=== PATIENT | male | born 1935 | race Caucasian/White ===

== ENCOUNTER 2017-02-19 07:46 | Day surgery (SDC) | payer MEDICARE, BC ==
[2017-02-19 08:27] LABS: Prothrombin Time (Patient) 10.4 Seconds (9.0-11.0)
[2017-02-19 08:29] LABS: INR 1.04 INR (0.90-1.10)
--- NOTE | 2017-02-19 08:39 | OR ---
Anesthesia Pre Procedure Eval Date of Service: 02/19/17 Pre Procedure Evaluation: Last Vital Signs Temp 36.0 C L 02/19/17 08:05 Pulse 54 L 02/19/17 08:05 Resp 16 02/19/17 08:05 BP 94/64 02/19/17 08:05 Pulse Ox 96 02/19/17 08:05 Anesthesia Pre Procedure Evaluation DATE: 02/19/2017 TIME: 8:30 AM INDICATIONS: Low back and right radicular pain PAST MEDICAL HISTORY: Long history of right hip pain with recent onset of back and right radicular pain. History of GERD: No History of smoking: No History of sleep apnea: No EXAM: Heart slow regular; lungs clear ASSESSMENT OF MEDICAL STATUS: Mr. Urbano has had a long history of right hip pain. He has been treated as if it was in the hip joint itself however his most recent injection has proved to be of no value for pain relief at this point. Shortly after the hip injection developed sudden increased pain which included a radicular pain radiating to the ankle in the anterior portion. He is here for an epidural injection. After reviewing the MRI with the patient was determined that the first step would be to do a low lumbar epidural injection. The MRI shows multilevel issues, most significantly with a spinal stenosis and 2 levels of foraminal stenosis in the lower portion of the lumbar vertebrae. He also has a level of bilateral facet arthropathy and he does have some symptoms of pain related to the arthropathy as well. When his back pain gets particularly bad it is aggravated by extension and relieved with flexion. All aspects of the potential etiology of his pain were discussed as well as the procedure of the lumbar epidural steroid injection. The procedure and risks were also discussed explained. His INR is an acceptable 1.04. PLANNED PROCEDURE: Today low lumbar epidural injection should the greatest potential of covering most of the pathologies is experiencing. Depending on results facet injections may be of value but that is to be determined. Today we plan on an L4-L5 injection. Home Medications: HOME MEDICATIONS Levothyroxine Sodium [Synthroid] 50 mcg PO DAILY 01/13/12 [Last Taken Unknown] Lisinopril/Hydrochlorothiazide [Lisinopril-Hctz 20-12.5 mg Tab] 1 each PO DAILY 01/13/12 [Last Taken 05/13/15 06:15] Polyethylene Glycol 3350 [Miralax] 17 gm PO DAILY PRN 01/13/12 [Last Taken Unknown] Warfarin Sodium [Coumadin] 5 mg PO THSA 01/13/12 [Last Taken Unknown] Atorvastatin Calcium 10 mg PO HS 08/27/14 [Last Taken Unknown] Warfarin Sodium [Coumadin] 2.5 mg PO SUMOTUWEFR 05/13/15 [Last Taken Unknown] Brimonidine Tartrate [Brimonidine 0.2% Ophthalmic Solution] 1 drop EACHEYE BID 10/13/16 [Last Taken Unknown] Cholecalciferol (Vitamin D3) [Vitamin D3] 1,000 unit PO DAILY 10/13/16 [Last Taken Unknown] Acetaminophen [Tylenol] 500 - 1,000 mg PO Q6H PRN 02/11/17 [Last Taken Unknown] Amiodarone HCl [Cordarone] 100 mg PO DAILY 02/11/17 [Last Taken Unknown] traMADol HCL [Ultram] 50 - 100 mg PO Q8H PRN 02/11/17 [Last Taken Unknown]
[2017-02-19] MEDS ORDERED: IOPAMIDOL 20 ML VIAL IJ ONE (08:55)
[2017-02-19] MEDS ORDERED: DEXAMETHASONE SOD PHOSPHATE 10 MG/ML VIAL IJ ONE (08:55)
[2017-02-19] MEDS ORDERED: LIDOCAINE HCL/PF 5 ML VIAL IJ ONE (08:55)
--- NOTE | 2017-02-19 09:07 | OR ---
Anesthesia Procedure Note - Anesthesia Procedure Note Date of Service: 02/19/17 Narrative: Vital Signs - Last Taken Temp 36.0 C L 02/19/17 08:05 Pulse 72 02/19/17 08:55 Resp 16 02/19/17 08:55 BP 152/90 02/19/17 08:55 Pulse Ox 94 02/19/17 08:55 O2 Oxygen Delivery Method Room Air 02/19/17 09:02 ANESTHESIA PROCEDURE NOTE Date of Procedure: 02/19/2017 Time of procedure: 08 50. Performed by: Calvin Newby CRNA, TUFTING CREELER, MSN Probate Judge: Patricia Varghese RN. Preprocedure diagnosis: Back and right radicular pain, spinal stenosis. Post procedure diagnosis: Same. Procedure: Epidural Steroid Injection L4 5. Indications: And radicular pain. Findings: See below. Details of the procedure: After the MRI report and films were reviewed, the patient was interviewed where risks and the procedure were explained. The patient was then brought to over #3 and was placed in the prone position. The back was prepped with DuraPrep and draped in a sterile fashion. The lumbar area was identified under fluoroscopy and the right L45 space was localized with 1% lidocaine solution. The epidural space was identified using loss of resistance technique using a #20-gauge Touhy needle. 1 mL of Isovue was injected while the C-arm was positioned in the lateral orientation. The C-arm was then readjusted to an AP view and Isovue 200 2 milliliters was injected demonstrating a spread at the affected area. Dexamethasone 10mg and lidocaine 1 % 5 mL was injected, stylette was replaced and the epidural needle removed. A Band-Aid was then applied to the injection site, patient was placed in a supine position for 5 minutes then returned to ASU with good relief of pain, from a 20/ 10 to 0/10. EBL: None. Energy: 16.1 Seconds, 0.41 mGy Fluids: N/A. Specimen: N/A. Post procedure condition: The patient tolerated the procedure well. No complications were noted. Thank you for this consultation. Calvin Newby CRNA, MSN, TUFTING CREELER
[2017-02-19 09:39] VITALS: BP 101/61
== END 2017-02-19 07:47 | disposition home or self-care (01) ==
LOC: AMB 07:46
PROVIDERS: ATTEND Orthopaedic Surgery
PROC: 3E0R33Z Introduction of Anti-inflammatory into Spinal Canal, Percutaneous Approach (ICD-10-PCS; 2017-02-19)
PROC: B01BZZZ Fluoroscopy of Spinal Cord (ICD-10-PCS; 2017-02-19)
PROC: 3E0R3BZ Introduction of Anesthetic Agent into Spinal Canal, Percutaneous Approach (ICD-10-PCS; principal; 2017-02-19 08:30)
DX: M48.061 Spinal stenosis, lumbar region without neurogenic claudication (principal); Z79.01 Long term (current) use of anticoagulants; Z68.33 Body mass index [BMI] 33.0-33.9, adult

== ENCOUNTER 2019-06-06 19:04 | Observation (INO) ==
[2019-06-06 20:08] LABS: Hematocrit 43.9 % (42.0-52.0); Hemoglobin 14.8 gm/dL (13.5-18.0); Mean Corpuscular Hgb Conc 33.7 g/dl (32-36); Mean Platelet Volume 10.2 fl (8-11.3); Neutrophil # 7.1 K/mm3 (1.3-6.0); Neutrophil % 79.2 % (42-75.0); Platelet Count 143 K/mm3 (150-450); Red Blood Count 4.77 M/mm3 (4.7-6.0); Red Cell Distribution Width 14.1 % (11.5-14.0); White Blood Count 8.9 K/mm3 (4.0-10.5)
[2019-06-06 20:25] LABS: ALT 16 U/L (19-67); AST 18 U/L (0-48); Albumin * 4.1 gm/dl (3.4-5.0); Alkaline Phosphatase * 91 U/L (50-170); Amylase * 65 U/L (25-115); Anion Gap 15.4 mmol/L (6.8-13.8); BUN/Creatinine Ratio 17.9 (9.0-21.6); Bilirubin, Total 0.8 mg/dL (0.0-1.1); Blood Urea Nitrogen 24 mg/dL (6-23); Ca. Corrected For Albumin 9.4 mg/dL (8.4-10.2); Calcium * 9.8 mg/dL (7.9-10.9); Carbon Dioxide 26.6 mmol/L (24-32.6); Chloride 105 mmol/L (97-106); Glucose * 90 mg/dL (70-110); Lipase 122 U/L (73-393); Sodium 143 mmol/L (132-142)
[2019-06-06] MEDS ORDERED: HYDROmorphone HCL 1 MG/ML DISP.SYRIN IV ONE (20:52)
[2019-06-06] MEDS ORDERED: DIATRIZOATE MEGLUMINE, SODIUM 30 ML BTL PO ONE (20:52)
[2019-06-06] MEDS ORDERED: ONDANSETRON HCL/PF 2 MG/ML VIAL IV ONE (20:52)
--- NOTE | 2019-06-06 22:00 | ERNOTE ---
Abdominal HPI - Narrative Date of Service: 06/06/19 - General Chief Complaint: Abdominal Pain Time Seen by Provider: 06/06/19 19:42 Source: patient, RN notes reviewed, past records Exam Limitations: no limitations - Immun/Allergies/Home Medications Immunizatons: IMMUNIZATION HX Immunizations Up to Date Yes History of Influenza Vaccine Yes Hx Pneumococcal Vaccination Yes Allergies/Adverse Reactions: Allergies morphine Adverse Reaction (Mild, Verified 07/13/18 10:23) hallucinations Home Medications: HOME MEDICATIONS Brimonidine Tartrate [Brimonidine 0.2% Ophthalmic Solution] 1 drp EACHEYE BID 10/13/16 [Last Taken Unknown] Amiodarone HCl [Cordarone] 100 mg PO DAILY 02/11/17 [Last Taken Unknown] warfarin 5 mg tablet 2.5 mg PO DAILY 10/09/17 [Last Taken Unknown] Omeprazole [Prilosec] 20 mg PO DAILY 10/21/17 [Last Taken Unknown] acetaminophen 325 mg tablet 650 mg PO Q6H tab 05/03/18 [Last Taken Unknown] atorvastatin 20 mg tablet 10 mg PO HS tab 05/03/18 [Last Taken Unknown] Ergocalciferol (Vitamin D2) [Vitamin D2] 50,000 unit PO Q7D 07/08/18 [Last Taken Unknown] Levothyroxine Sodium [Synthroid] 50 mcg PO DAILY 07/26/18 [Last Taken Unknown] lisinopril 20 mg-hydrochlorothiazide 12.5 mg tablet 1 tab PO DAILY #90 tab 12/20/18 [Last Taken Unknown] tamsulosin 0.4 mg capsule 0.4 mg PO DAILY #90 cap 04/19/19 [Last Taken Unknown] - History of Present Illness Narrative: Gasper is a 83 year old male who presents to the ED from home for mid abdominal pain that began earlier today. He has mild pain all the time, but has intermittent bouts of severe pain. He has a history of diverticulitis with perforation and a colon resection. He denies any nausea or vomiting. He has not had a bowel movement today and reports that this is unusual for him. He is anticoagulated on Coumadin for Afib. Date (Duration): 06/06/19 Time (Timing): 14:30 Activities at Onset: none - had just eaten Modifying Factors - (Improves): Absent: rest, movement Modifying Factors - (Worsens): Absent: rest, movement Associated Symptoms: Present: denies symptoms Prior Abdominal Problems: Present: similar symptoms Prior Treatment: Absent: recently seen Review of Systems - Review of Systems Constitutional: Absent: recent illness, fever, chills EYE: Present: no symptoms reported ENT: Present: no symptoms reported Respiratory: Absent: shortness of breath, cough Cardiology: Absent: chest pain, syncope Gastrointestinal/Abdominal: Present: See HPI. Absent: other - blood in stools Genitourinary: Present: no symptoms reported Musculoskeletal: Absent: back pain Skin: Absent: rash, lesions Neurological: Absent: headache, dizziness/light-headedness Endocrine: Present: no symptoms reported Hematologic/Lymphatic: Present: easy bruising, easy bleeding Psych: Present: no symptoms reported Medical History (Last Reviewed 06/06/19 @ 21:55 by Laurie Hinson NP) Trochanteric bursitis, right hip (Chronic) Onset Date: Unknown assisted current use of amiodarone (Chronic) Onset Date: Unknown Osteoarthritis (Chronic) Onset Date: 03/05/11 Liver disease (Chronic) Onset Date: Unknown Hypothyroidism (Chronic) Onset Date: 03/05/11 Hypertension (Chronic) Onset Date: 03/05/11 Atrial fibrillation (Chronic) Onset Date: Unknown History of atrial fibrillation nonrecurrent on amiodarone therapy. 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 Soledad's reversal 04/22/2018. Diarrhea Onset Date: Unknown Hospital admission Onset Date: 04/22/18 Admitted to [facility] on 04/22/2018; Soledad's reversal. Discharged home on 04/26/2018. Personal history of colonic polyps Onset Date: Unknown Surgical History: Surgical History (Last Reviewed 06/06/19 @ 21:55 by Laurie Hinson NP) History of Soledad's reversal Onset Date: 04/22/18 Dr. Edwin Valentino, [facility]. History of colon resection Onset Date: 10/26/17 History of colonoscopy with polypectomy Onset Date: 02/17/18 Dr. Edwin Valentino [facility]. History of colostomy Onset Date: 10/26/17 History of exploratory laparotomy Onset Date: 12/22/08 tinguely History of ileostomy Onset Date: 12/22/08 Dr. Rip Ahuja, [facility].--diverting 03/19/09-- Tinguely take down of ileostomy with resection and reanastomosis of the ileum History of right hip replacement Onset Date: 05/13/15 right total hip arthroplasty per Dr Loera History of total right knee replacement Onset Date: 2003 Normal colonoscopy Onset Date: 03/18/10 Normal-Tinguely S/P TURP Onset Date: 06/1999 sigmoid colon resection Onset Date: 12/22/08 tinguely --partial Family History: Family History (Last Reviewed 06/06/19 @ 21:55 by Laurie Hinson NP) Father , at 84 d/t [place] Cancer colon, prostate Myocardial infarction Mother , 98 Dementia Brother Cancer kidney Esophageal neoplasm benign Social History: (Last Reviewed 06/06/19 @ 21:55 by Laurie Hinson NP) Social History: Marital status: household members: spouse number of children: 2 current occupational status: retired Highest education level completed: high school graduate Service: Yes branch: [employer] Tobacco: Smoking Status: Never smoker Tobacco: How many years used: 40 Alcohol: alcohol intake: current Alcohol type: beer Substance Use: substance use type: does not use Dietary Habits: caffeine: Yes Physical Exam - Physical Exam General Appearance: Present: wd/wn, alert, other - Intermittent episodes of clutching abdomen and appearing very uncomfortable Head Exam: Present: normal inspection Eye Exam: Normal inspection: bilateral Neck: Present: normal inspection, nontender, supple Respiratory: Present: no respiratory distress, normal breath sounds, no acce ssory muscle use, lungs clear Cardiovascular/Chest: Present: normal peripheral pulses, bradycardia, irregularly irregular Gastrointestinal/Abdominal: Present: normal bowel sounds, nondistended, soft, tenderness - Mid/upper abdomen Neurological Exam: Present: alert, oriented, normal mood/affect, no motor/sensory deficits Skin Exam: Present: normal color, warm/dry Progress - Results and Orders Patient's Lab Results:: I have reviewed the patient's lab results. - Vital Signs Patient's Vital Signs:: I have reviewed the patient's vital signs. Vital Signs: Vital Signs 06/06/19 19:10 06/06/19 21:06 06/06/19 21:20 Temperature 37.3 C Pulse Rate 61 43 L 44 L Respiratory Rate 16 16 14 Blood Pressure 138/72 211/82 H O2 Sat by Pulse Oximetry 95 98 06/06/19 21:24 06/06/19 21:30 Temperature Pulse Rate 39 L 43 L Respiratory Rate 16 14 Blood Pressure 211/82 H 208/78 H O2 Sat by Pulse Oximetry 99 98 - EKG EKG #1 EKG: atrial fibrillation - with SVR EKG read: Reviewed by me - X-Ray X-Ray #1 X-Ray: abdomen Interpretation: Interp. by me X-ray Comments: nonspecific bowel gas pattern - Progress/Reassessment Chief Complaint: Abdominal Pain Progress:: Improved - Transfer of Care Physician Sign Out: Laurie Hinson Receiving Physician: Jed Sandoval Expected Disposition: Discharge Departure Clinical Impression: Abdominal pain Qualifiers: Abdominal location: upper abdomen, unspecified Qualified Code(s): R10.10 - Upper abdominal pain, unspecified - Departure Disposition: Home self-care Condition: Stable Referrals: Amado Nicholson DO [Primary Care Provider] -
[2019-06-07 01:30] LABS: Prothrombin Time (Patient) 24.1 Seconds (9.1-10.7)
[2019-06-07 01:33] LABS: INR 2.52 INR (0.92-1.08)
[2019-06-07] MEDS ORDERED: PANTOPRAZOLE SODIUM 40 MG/100 ML PIGGYBACK IV ONE (01:35)
--- NOTE | 2019-06-07 01:41 | HP ---
Chief Complaint - Chief Complaint Date of Service: 06/07/19 Time of Service: 01:00 Chief Complaint: abdominal pain History of Present Illness: Started having mid abdominal pain at about 2:30-3 PM. Waxed and waned. Last BM yesterday, only a little gas today. No N/V. CT scan shows dilated proximal small bowel with a transition zone. Large amount of stool in the colon. Previous colon resections for diverticulitis. Had diverting ileostomy with last procedure (done at [facility]) reversed about a year ago. Glaucoma and urinary outlet obstruction. Hypothyroidism. Hypertension--recent poor control. A-fib on coumadin. Medical History (Last Reviewed 06/07/19 @ 01:28 by Eric Edwards MD) Trochanteric bursitis, right hip (Chronic) Onset Date: Unknown [facility]FP current use of amiodarone (Chronic) Onset Date: Unknown Osteoarthritis (Chronic) Onset Date: 03/05/11 Liver disease (Chronic) Onset Date: Unknown Hypothyroidism (Chronic) Onset Date: 03/05/11 Hypertension (Chronic) Onset Date: 03/05/11 Atrial fibrillation (Chronic) Onset Date: Unknown History of atrial fibrillation nonrecurrent on amiodarone therapy. 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 Soledad's reversal 04/22/2018. Diarrhea Onset Date: Unknown Hospital admission Onset Date: 04/22/18 Admitted to [facility] on 04/22/2018; Soledad's reversal. Discharged home on 04/26. Personal history of colonic polyps Onset Date: Unknown Surgical History: Surgical History (Last Reviewed 06/07/19 @ 01:28 by Eric Edwards MD) History of Soledad's reversal Onset Date: 04/22/18 Dr. Edwin Valentino, [facility]. History of colon resection Onset Date: 10/26/17 History of colonoscopy with polypectomy Onset Date: 02/17/18 Dr. Edwin Valentino, [facility]. History of colostomy Onset Date: 10/26/17 History of exploratory laparotomy Onset Date: 12/22/08 tinguely History of ileostomy Onset Date: 12/22/08 Dr. Rip Ahuja, [facility].--diverting 03/19/09-- Tinguely take down of ileostomy with resection and reanastomosis of the ileum History of right hip replacement Onset Date: 05/13/15 right total hip arthroplasty per Dr Loera History of total right knee replacement Onset Date: 2003 Normal colonoscopy Onset Date: 03/18/10 Normal-Tinguely S/P TURP Onset Date: 06/1999 sigmoid colon resection Onset Date: 12/22/08 tinguparam --partial Family History: Family History (Last Reviewed 06/07/19 @ 01:28 by Erci Edwards MD) Father , at 84 d/t [place] Cancer colon, prostate Myocardial infarction Mother , 98 Dementia Brother Cancer kidney Esophageal neoplasm benign Social History: (Last Reviewed 06/07/19 @ 01:28 by Eric Edwards MD) Social History: Marital status: household members: spouse number of children: 2 current occupational status: retired Highest education level completed: high school graduate Service: Yes branch: [employer] Tobacco: Smoking Status: Never smoker Tobacco: How many years used: 40 Alcohol: alcohol intake: current Alcohol type: beer Substance Use: substance use type: does not use Dietary Habits: caffeine: Yes Review Of Systems (GEN) - Review of Systems Generalized/Overall Review: Absent: Chills, Fever, Weight loss EENTM: Present: Other - needs eye drops hearing aid. Absent: No Symptoms Reported Respiratory: Absent: Cough, Shortness of Breath Cardiac: Present: Other - occasional sharp pleuritic pain, no angina he is unaware of irregular heartbeat BP has been very erratic over last month Abdominal: Present: Abdominal Pain. Absent: Nausea, Vomiting, Diarrhea, Bright blood from rectum Genitourinary: Present: Other - slow stream. Absent: Hematuria, Dysuria Musculoskeletal: Present: Other - right hip pain is better. Absent: No Symptoms Reported Neurological: Present: No Symptoms Reported. Absent: Headache Skin: Present: No Symptoms Reported Endocrine: Present: No Symptoms Reported Misc: All systems neg except as marked Immunizations: IMMUNIZATION HX Immunizations Up to Date Yes History of Influenza Vaccine Yes Hx Pneumococcal Vaccination Yes Allergies/Adverse Reactions: Allergies Allergy/AdvReac Type Severity Reaction Status Date / Time morphine AdvReac Mild hallucinati Verified 07/13/18 10:23 ons Home Medications: HOME MEDICATIONS Brimonidine Tartrate [Brimonidine 0.2% Ophthalmic Solution] 1 drp EACHEYE BID 10/13/16 [Last Taken Unknown] Amiodarone HCl [Cordarone] 100 mg PO DAILY 02/11/17 [Last Taken Unknown] warfarin 5 mg tablet 2.5 mg PO DAILY 10/09/17 [Last Taken Unknown] Omeprazole [Prilosec] 20 mg PO DAILY 10/21/17 [Last Taken Unknown] acetaminophen 325 mg tablet 650 mg PO Q6H tab 05/03/18 [Last Taken Unknown] atorvastatin 20 mg tablet 10 mg PO HS tab 05/03/18 [Last Taken Unknown] Ergocalciferol (Vitamin D2) [Vitamin D2] 50,000 unit PO Q7D 07/08/18 [Last Taken Unknown] Levothyroxine Sodium [Synthroid] 50 mcg PO DAILY 07/26/18 [Last Taken Unknown] lisinopril 20 mg-hydrochlorothiazide 12.5 mg tablet 1 tab PO DAILY #90 tab 12/20/18 [Last Taken Unknown] tamsulosin 0.4 mg capsule 0.4 mg PO DAILY #90 cap 04/19/19 [Last Taken Unknown] Exam - Exam Vital Signs: Vital Signs - Last Taken Temp 36.3 C 06/06/19 22:27 Pulse 70 06/07/19 00:35 Resp 16 06/07/19 00:35 BP 202/90 H 06/07/19 00:35 Pulse Ox 98 06/07/19 00:35 Constitutional: Present: Alert, Oriented x3, Cooperative, Well developed, Well nourished, Mild distress ENT Exam: Present: normal ENT inspection, other - wearing mask hearing aid Eye Exam: bilateral eye: normal inspection - slight injection Neck: Present: non-tender, full range of motion, normal inspection Back Exam: Present: normal inspection Breasts: Present: Exam deferred Respiratory: Present: lungs clear, normal breath sounds, no respiratory distress Cardiovascular/Chest: Present: irregularly irregular Abdomen: Present: soft, nontender, nondistended. Absent: rebound tenderness /Rectal: Present: Exam deferred Extremity: Present: normal range of motion, normal inspection, no pedal edema, no calf tenderness, normal capillary refill Skin Exam: Present: warm/dry Neurologic: Present: manager of change II-XII nml as tested, normal cerebellar test, no motor/sensory deficits, alert, normal mood/affect, oriented x 3 Appearance: Present: appropriate appearance, appropriate insight, neat Eye contact: Present: cooperative, good eye contact, normal speech Thoughts: Present: normal thought pattern Diagnostic Studies: Abnormal Lab Results 06/06/19 06/06/19 Range/Units 19:53 19:53 RDW 14.1 H (11.5-14.0) % Plt Count 143 L (150-450) K/mm3 Immature Gran # (Auto) 0.04 H (0.000-0.0310) K/mm3 Neutrophils % 79.2 H (42-75.0) % Lymphocytes % 13.1 L (20-51) % Neutrophils # 7.1 H (1.3-6.0) K/mm3 Lymphocytes # 1.17 L (1.5-3.5) k/mm3 Sodium 143 H (132-142) mmol/L Plasma Sodium 143 H (130-142) mmol/L Anion Gap 15.4 H (6.8-13.8) mmol/L BUN 24 H (6-23) mg/dL Est GFR (Non-Af Amer) 54 L (60-130) mL/min ALT 16 L (19-67) U/L Laboratory Results WBC 8.9 K/mm3 (4.0-10.5) 06/06/19 19:53 RBC 4.77 M/mm3 (4.7-6.0) 06/06/19 19:53 Hgb 14.8 gm/dL (13.5-18.0) 06/06/19 19:53 Hct 43.9 % (42.0-52.0) 06/06/19 19:53 MCV 92.0 fl (78-100) 06/06/19 19:53 MCH 31.0 pg (27-31) 06/06/19 19:53 MCHC 33.7 g/dl (32-36) 06/06/19 19:53 RDW 14.1 % (11.5-14.0) H 06/06/19 19:53 Plt Count 143 K/mm3 (150-450) L 06/06/19 19:53 MPV 10.2 fl (8-11.3) 06/06/19 19:53 Immature Gran % (Auto) 0.40 % (0.001-0.429) 06/06/19 19:53 Immature Gran # (Auto) 0.04 K/mm3 (0.000-0.0310) H 06/06/19 19:53 Neutrophils % 79.2 % (42-75.0) H 06/06/19 19:53 Lymphocytes % 13.1 % (20-51) L 06/06/19 19:53 Monocytes % 5.3 % (0.0-9) 06/06/19 19:53 Eosinophils % 1.6 % (0.0-3.0) 06/06/19 19:53 Basophils % 0.4 % (0.0-1.0) 06/06/19 19:53 Nucleated RBC % 0.0 k/mm3 (0-1) 06/06/19 19:53 Neutrophils # 7.1 K/mm3 (1.3-6.0) H 06/06/19 19:53 Lymphocytes # 1.17 k/mm3 (1.5-3.5) L 06/06/19 19:53 Monocytes # 0.5 k/mm3 (0.0-1.0) 06/06/19 19:53 Eosinophils # 0.1 k/mm3 (0.0-0.7) 06/06/19 19:53 Absolute Basophils 0.0 k/mm3 (0.0-0.1) 06/06/19 19:53 Sodium 143 mmol/L (132-142) H 06/06/19 19:53 Plasma Sodium 143 mmol/L (130-142) H 06/06/19 19:53 Potassium 4.0 mmol/L (3.4-4.6) 06/06/19 19:53 Chloride 105 mmol/L (97-106) 06/06/19 19:53 Carbon Dioxide 26.6 mmol/L (24-32.6) 06/06/19 19:53 Anion Gap 15.4 mmol/L (6.8-13.8) H 06/06/19 19:53 BUN 24 mg/dL (6-23) H 06/06/19 19:53 Creatinine 1.34 mg/dL (0.4-1.4) 06/06/19 19:53 Est GFR (Non-Af Amer) 54 mL/min (60-130) L 06/06/19 19:53 BUN/Creatinine Ratio 17.9 (9.0-21.6) 06/06/19 19:53 Random Glucose 90 mg/dL (70-110) 06/06/19 19:53 Calcium 9.8 mg/dL (7.9-10.9) 06/06/19 19:53 Calcium Adj for Albumin 9.4 mg/dL (8.4-10.2) 06/06/19 19:53 Total Bilirubin 0.8 mg/dL (0.0-1.1) 06/06/19 19:53 AST 18 U/L (0-48) 06/06/19 19:53 ALT 16 U/L (19-67) L 06/06/19 19:53 Alkaline Phosphatase 91 U/L (50-170) 06/06/19 19:53 C-Reactive Prot, Quant Less than 0.2 mg/dL (0.0-0.9) 06/06/19 19:53 Total Protein 7.0 gm/dL (6.2-8.2) 06/06/19 19:53 Albumin 4.1 gm/dl (3.4-5.0) 06/06/19 19:53 Amylase 65 U/L (25-115) 06/06/19 19:53 Lipase 122 U/L (73-393) 06/06/19 19:53 CT shows dilated proximal small bowel with transition. Large amount of stool in colon Assessment/Plan - Assessment/Plan (1) Small bowel obstruction Assessment: Most likely from adhesions, and may not be complete. Would trial NG suction with re-assessment as operation would be very technically difficult and he has multiple co-morbidities. Problem: Acute (2) [facility]FP current use of amiodarone Assessment: continue Problem: Chronic (3) Hypothyroidism Assessment: continue current med Problem: Chronic (4) Hypertension Assessment: His BP control is currently not optima, will consult Dr Nicholson in AM Problem: Chronic (5) Atrial fibrillation Assessment: Will check INR. Will hold Coumadin and use SQ Heparin Problem: Chronic (6) Hyperlipidemia Assessment: continue med Problem: Chronic (7) Urinary retention Assessment: continue med Problem: Chronic (8) GERD (gastroesophageal reflux disease) Assessment: IV protonix Problem: Chronic (9) Glaucoma Assessment: continue current drops Problem: Chronic
[2019-06-07] MEDS: NORMAL SALINE 1,000 ML IV PRN ×2 (03:15→16:22)
[2019-06-07] MEDS: HEPARIN SODIUM,PORCINE 5,000 UNITS/ML VIAL SC SCH ×3 (03:25→18:44)
[2019-06-07] MEDS: LEVOTHYROXINE SODIUM 50 MCG TABLET PO SCH (07:06)
[2019-06-07] MEDS ORDERED: hydrALAZINE HCL 20 MG/ML VIAL IV ONE (08:39)
[2019-06-07] MEDS ORDERED: NON-FORMULARY 1 DOSE DOSE (Lisinopril/Hydrochlorothiazide [Lisinopril-Hctz 20-12.5 Mg Tab] PO SCH (09:00)
[2019-06-07] MEDS ORDERED: LISINOPRIL 20 MG TABLET PO SCH (09:00)
[2019-06-07] MEDS ORDERED: TAMSULOSIN HCL 0.4 MG CAP.SR.24H PO SCH ×2 (09:00→18:00)
[2019-06-07] MEDS: AMIODARONE HCL 200 MG TABLET PO SCH (09:13)
[2019-06-07] MEDS: BRIMONIDINE TARTRATE 50 DROP BTL EACHEYE SCH ×2 (09:13→21:02)
[2019-06-07] MEDS: HYDROCHLOROTHIAZIDE 12.5 MG CAPSULE PO SCH (09:14)
--- NOTE | 2019-06-07 10:37 | PN ---
Dictated Progress Note - Date and Time Seen: Date: 06/07/19 Time: 10:35 - Second visit - Progress Note Narrative: Vital Signs - Last Taken Temp 36.6 C 06/07/19 05:00 Pulse 45 L 06/07/19 09:14 Resp 16 06/07/19 05:00 BP 188/72 H 06/07/19 09:14 Pulse Ox 100 06/07/19 05:00 Abnormal/Pending Laboratory Last 24 HRS 06/06/19 06/06/19 06/06/19 20:00 19:53 19:53 RDW 14.1 H Plt Count 143 L Immature Gran # (Auto) 0.04 H Neutrophils % 79.2 H Lymphocytes % 13.1 L Neutrophils # 7.1 H Lymphocytes # 1.17 L PT 24.1 H INR (Anticoag Therapy) 2.52 H Sodium 143 H Plasma Sodium 143 H Anion Gap 15.4 H BUN 24 H Est GFR (Non-Af Amer) 54 L ALT 16 L He states his abdomen feels better. No pain. He has passed some gas. Repeat x-ray this morning shows CT contrast is moved into the colon and the small bowel is no longer dilated. He had initial high NG output however tolerated clamping of the tube for medication with minimal post clamp residual. Impression: Clinically improved. Plan: Will administer a dose of MiraLAX and some Dulcolax, clamp the tube. If he has bowel activity may start liquids this evening.
[2019-06-07] MEDS ORDERED: BISACODYL 5 MG TABLET.DR PO ONE ×2 (10:38→16:45)
[2019-06-07] MEDS: POLYETHYLENE GLYCOL 3350 17 GM PACKET PO SCH (10:53)
[2019-06-07] MEDS ORDERED: TETRACAINE/BENZOCAINE/BUTAMBEN 20 SPRAY BTL TP PRN (16:07)
[2019-06-07] MEDS ORDERED: PHENOL 180 SPRAY BTL MM PRN (16:35)
--- NOTE | 2019-06-07 16:47 | PN ---
Subjective - Date and Time Seen Date: 06/07/19 Time: 16:41 Objective Objective Narrative: His only current complaint is a sore throat. Chloraseptic has helped. Minimal NG output, and he tolerated p.o. meds. He denies abdominal pain. He states he is passing more gas. - Review of Systems Generalized/Overall Review: Denies: Chills, Fever EENTM: Reports: Other - Throat sore from the NG tube Respiratory: Reports: No Symptoms Reported. Denies: Cough, Shortness of Breath Cardiac: Reports: No Symptoms Reported. Denies: Chest Pain Abdominal: Denies: Nausea, Vomiting, Abdominal Pain Genitourinary Symptoms: Reports: No Symptoms Reported, Other - Has voided "the normal amount" Musculoskeletal Complaints: Reports: No Symptoms Reported Neurological: Reports: No Symptoms Reported Skin: Reports: No Symptoms Reported - Vitals Vitals: Last Vital Signs Temp 37.0 C 06/07/19 14:59 Pulse 52 L 06/07/19 14:59 Resp 20 06/07/19 14:59 BP 154/66 H 06/07/19 14:59 Pulse Ox 96 06/07/19 14:59 - Abnormal Lab Findings Abnormal Lab Findings: Abnormal Lab Results 06/06/19 06/06/19 06/06/19 Range/Units 19:53 19:53 20:00 RDW 14.1 H (11.5-14.0) % Plt Count 143 L (150-450) K/mm3 Immature Gran # (Auto) 0.04 H (0.000-0.0310) K/mm3 Neutrophils % 79.2 H (42-75.0) % Lymphocytes % 13.1 L (20-51) % Neutrophils # 7.1 H (1.3-6.0) K/mm3 Lymphocytes # 1.17 L (1.5-3.5) k/mm3 PT 24.1 H (9.1-10.7) Seconds INR (Anticoag Therapy) 2.52 H (0.92-1.08) INR Sodium 143 H (132-142) mmol/L Plasma Sodium 143 H (130-142) mmol/L Anion Gap 15.4 H (6.8-13.8) mmol/L BUN 24 H (6-23) mg/dL Est GFR (Non-Af Amer) 54 L (60-130) mL/min ALT 16 L (19-67) U/L - Exam Constitutional: Present: Alert, Oriented x3, Cooperative, Well developed, Well nourished, No distress ENT Exam: Present: normal ENT inspection Neck: Present: full range of motion, normal inspection Respiratory: Present: no respiratory distress Cardiovascular/Chest: Present: bradycardia Abdomen: Present: soft, nontender /Rectal: Present: Exam deferred Extremity: Present: normal range of motion, no pedal edema, no calf tenderness Skin Exam: Present: normal color, warm/dry 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 He is passing gas. He has no more abdominal discomfort Will clamp the NG tube and start clear liquids. 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 Await Dr. Nicholson suggestions (3) Hypothyroidism Problem: Chronic Narrative: Stable continue usual medication (4) Hypertension Problem: Chronic Narrative: Blood pressure has been better today. Await Dr. Nicholson's recommendation (5) Atrial fibrillation Problem: Chronic Narrative: Rate has been low today. Await Dr. Nicholson's recommendation. Continue current medication (6) Hyperlipidemia Problem: Chronic Narrative: Continue current medication (7) Urinary retention Problem: Chronic (8) GERD (gastroesophageal reflux disease) Problem: Chronic Narrative: Continue IV Protonix (9) Glaucoma Problem: Chronic Narrative: Continue usual eyedrops
[2019-06-07] MEDS ORDERED: SIMVASTATIN 20 MG TABLET PO SCH (21:00)
--- NOTE | 2019-06-07 23:10 | CONS ---
[facility] - General Date of Service: 06/07/19 Source: patient, other - Consulting physician (Dr. Edwards) - History of Present Illness Initial Comments: Patient is admitted for small bowel obstruction. He reported blood pressures have been elevated off and on. In the hospital blood pressures have been consistently greater than 180. He has had headache. He reports abdomen is feeling better and at this time he does not have any abdominal pain. He denies changes with blood pressure medications and does not think he has been overusing salt. Allergies/Adverse Reactions: Allergies morphine Adverse Reaction (Mild, Verified 07/13/18 10:23) hallucinations Home Medications: Home Medications Medication Instructions Recorded Last Taken Brimonidine Tartrate [Brimonidine 1 drp EACHEYE BID 10/13/16 06/06/19 0.2% Ophthalmic Solution] Amiodarone HCl [Cordarone] 100 mg PO DAILY 02/11/17 06/06/19 warfarin 5 mg tablet 2.5 mg PO DAILY 10/09/17 06/05/19 Omeprazole [Prilosec] 20 mg PO DAILY 10/21/17 06/06/19 acetaminophen 325 mg tablet 650 mg PO Q6H tab 05/03/18 Unknown atorvastatin 20 mg tablet 10 mg PO HS tab 05/03/18 06/06/19 Ergocalciferol (Vitamin D2) 50,000 unit PO Q7D 07/08/18 06/06/19 [Vitamin D2] Levothyroxine Sodium [Synthroid] 50 mcg PO DAILY 07/26/18 06/06/19 lisinopril 20 1 tab PO DAILY #90 tab 12/20/18 06/06/19 mg-hydrochlorothiazide 12.5 mg tablet tamsulosin 0.4 mg capsule 0.4 mg PO DAILY #90 cap 04/19/19 06/05/19 Procedures ARTERIAL BLD GAS MEASURE (01/04/09) CYSTOSCOPY NEC (04/26/09) Closed [percutaneous] [needle] biopsy of prostate (06/07/07) Colonoscopy (03/18/10) Fluoroscopy of Spinal Cord (02/19/17) ILEOSTOMY NOS (12/22/08) Introduction of Anesthetic Agent into Spinal Canal, Percutaneous Approach (02/19/17) Introduction of Anti-inflammatory into Joints, Percutaneous Approach (05/13/15) Introduction of Anti-inflammatory into Spinal Canal, Percutaneous Approach (02/19/17) Introduction of Local Anesthetic into Joints, Percutaneous Approach (05/13/15) OPEN AND OTHER SIGMOIDECTOMY (12/22/08) OTH TRANSURETHRAL PROSTATECTOMY (05/15/09) Replacement of Right Hip Joint with Synthetic Substitute, Uncemented, Open Approach (05/13/15) SM BOWEL STOMA CLOSURE (03/19/09) VENOUS CATHETERIZATION NEC (01/04/09) Medications - Medications Current Medications: Current Medications Amiodarone HCl (Cordarone) 100 mg PO DAILY JASVIR Stop: 07/07/19 09:01 Last Admin: 06/07/19 09:13 Dose: 100 mg Documented by: Brimonidine Tartrate (Brimonidine 0.2% Ophthalmic Solution) 1 drop EACHEYE BID JASVIR Stop: 07/07/19 09:01 Last Admin: 06/07/19 21:02 Dose: 1 drop Documented by: Heparin Sodium (Porcine) (Heparin Sodium) 5,000 units SC Q8H JSAVIR Stop: 07/07/19 02:01 Last Admin: 06/07/19 18:44 Dose: 5,000 units Documented by: Hydrochlorothiazide (Microzide) 12.5 mg PO DAILY JASVIR Stop: 07/07/19 09:01 Last Admin: 06/07/19 09:14 Dose: 12.5 mg Documented by: Sodium Chloride (Sodium Chloride 0.9%) 1,000 mls @ 100 mls/hr IV .Q10H PRN PRN Reason: HYDRATION Stop: 07/07/19 01:20 Last Admin: 06/07/19 16:22 Dose: 100 mls/hr Documented by: Levothyroxine Sodium (Synthroid) 50 mcg PO DAILY@0700 JASVIR Stop: 07/07/19 07:01 Last Admin: 06/07/19 07:06 Dose: Not Given Documented by: Lisinopril (Zestril) 20 mg PO DAILY JASVIR Stop: 07/07/19 09:01 Last Admin: 06/07/19 09:14 Dose: 20 mg Documented by: Polyethylene Glycol (Miralax) 17 gm PO DAILY JASVIR Stop: 07/07/19 10:46 Last Admin: 06/07/19 10:53 Dose: 17 gm Documented by: Simvastatin (Zocor) 20 mg PO HS JASVIR Stop: 05/08/20 21:01 Last Admin: 06/07/19 21:02 Dose: 20 mg Documented by: Tamsulosin HCl (Flomax) 0.4 mg PO DAILY@1800 JASVIR Stop: 07/07/19 18:01 Last Admin: 06/07/19 18:43 Dose: 0.4 mg Documented by: Review of Systems - Review of Systems Generalized/Overall Review: Absent: Weakness, Chills, Fever EENTM: Absent: Eye Pain, Blurred Vision Respiratory: Absent: Cough, Shortness of Breath Cardiac: Absent: Chest Pain, Edema, Palpitations Abdominal: Absent: Nausea, Vomiting, Abdominal Pain Genitourinary: Present: No Symptoms Reported Musculoskeletal: Present: Joint Pain, Back Pain Neurological: Present: Headache. Absent: Weakness Endocrine: Absent: Intolerance to Cold, Intolerance to Heat Physical Examination - Exam Vital Signs: Vital Signs - Last Taken Temp 37.4 C 06/07/19 19:35 Pulse 52 L 06/07/19 19:35 Resp 18 06/07/19 19:35 BP 176/72 H 06/07/19 20:59 Pulse Ox 95 06/07/19 19:35 O2 Oxygen Delivery Method Room Air Constitutional: Present: Alert, Oriented x3, Cooperative ENT Exam: Present: hearing grossly normal Eye Exam: bilateral eye: normal inspection Respiratory: Present: lungs clear, normal breath sounds Cardiovascular/Chest: Present: regular rate, rhythm, no murmur Peripheral Pulses: radial (R): 2+, radial (L): 2+ Abdomen: Present: Normal bowel sounds, soft, nontender, nondistended, no rebound tenderness Skin Exam: Present: normal color, warm/dry, no cyanosis, cool/dry Neurologic: Present: alert, normal mood/affect, oriented x 3 Appearance: Present: appropriate appearance, appropriate insight Eye contact: Present: cooperative, good eye contact, normal speech - Results and Findings: Lab/Microbiology results last 24 hrs: Abnormal/Pending Laboratory Last 24 HRS 06/06/19 20:00 PT 24.1 H INR (Anticoag Therapy) 2.52 H - Assessments/Findings (1) Accelerated essential hypertension Diagnosis(s): He has had a mild headache but no altered mentation, so no evidence of hypertensive emergency. He does consistently have blood pressures above 180 so I will give him a low dose IV hydralazine to quickly lower the blood pressure a little. Will monitor blood pressure for further doses of hydralazine. Will plan to increase lisinopril if blood pressure continues to be elevated. His blood pressure had been controlled in the outpatient setting. Either dietary noncompliance or pain related to small bowel obstruction has it elevated recently. Thank you for consultation, will following along for blood pressure management. Problem: Acute (2) Small bowel obstruction Diagnosis(s): Surgically managed by Dr. Edwards. Problem: Acute
[2019-06-08] MEDS: NORMAL SALINE 1,000 ML IV PRN (02:19)
[2019-06-08] MEDS: HEPARIN SODIUM,PORCINE 5,000 UNITS/ML VIAL SC SCH ×2 (02:33→12:39)
[2019-06-08 06:43] LABS: INR 3.55 INR (0.92-1.08); Prothrombin Time (Patient) 33.5 Seconds (9.1-10.7)
[2019-06-08] MEDS: BRIMONIDINE TARTRATE 50 DROP BTL EACHEYE SCH (08:10)
[2019-06-08] MEDS: HYDROCHLOROTHIAZIDE 12.5 MG CAPSULE PO SCH (08:10)
[2019-06-08] MEDS: LEVOTHYROXINE SODIUM 50 MCG TABLET PO SCH (08:10)
[2019-06-08] MEDS: AMIODARONE HCL 200 MG TABLET PO SCH (08:10)
[2019-06-08] MEDS: POLYETHYLENE GLYCOL 3350 17 GM PACKET PO SCH (08:15)
[2019-06-08] MEDS ORDERED: LISINOPRIL 40 MG TABLET PO SCH (09:00)
--- NOTE | 2019-06-08 14:02 | DS ---
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 An NG tube was placed and he was given IV fluids. His home medications were continued. A consultation was obtained from Dr. Nicholson regarding hypertensive management. His lisinopril was increased to 40 mg p.o. daily to good effect. Repeat flat and upright abdominal films demonstrated passage of the CT contrast through into the colon and resolution of small bowel dilation. The patient's abdominal pain resolved and he began to pass flatus. He was given additional MiraLAX and Dulcolax which resulted in a bowel movement. He tolerated a trial clamping of the NG tube with clear liquid diet. His diet was advanced to regular and the tube removed. He tolerated p.o. intake well and had additional bowel movements. He will be discharged home with activity as tolerated, regular diet, and resumption of his home medications. His lisinopril will be increased to 40 mg p.o. daily. He will be given a prescription for lisinopril 20 mg to add to his current antihypertensive medicine. He has numbers to call for questions or concerns. He is to continue a blood pressure log at home and call to arrange a follow-up appointment with Dr. Nicholson. Procedures Performed: none Results and Findings: Lab Pending Results 06/06/19 19:53: WBC 8.9, RBC 4.77, Hgb 14.8, Hct 43.9, MCV 92.0, MCH 31.0, MCHC 33.7, RDW 14.1 H, Plt Count 143 L, MPV 10.2, Immature Gran % (Auto) 0.40, Immature Gran # (Auto) 0.04 H, Neutrophils % 79.2 H, Lymphocytes % 13.1 L, Monocytes % 5.3, Eosinophils % 1.6, Basophils % 0.4, Nucleated RBC % 0.0, Neutrophils # 7.1 H, Lymphocytes # 1.17 L, Monocytes # 0.5, Eosinophils # 0.1, Absolute Basophils 0.0 06/06/19 19:53: Sodium 143 H, Plasma Sodium 143 H, Potassium 4.0, Chloride 105, Carbon Dioxide 26.6, Anion Gap 15.4 H, BUN 24 H, Creatinine 1.34, Est GFR (Non- Af Amer) 54 L, BUN/Creatinine Ratio 17.9, Random Glucose 90, Calcium 9.8, Calcium Adj for Albumin 9.4, Total Bilirubin 0.8, AST 18, ALT 16 L, Alkaline Phosphatase 91, C-Reactive Prot, Quant Less than 0.2, Total Protein 7.0, Albumin 4.1, Amylase 65, Lipase 122 06/06/19 20:00: PT 24.1 H, INR (Anticoag Therapy) 2.52 H 06/08/19 06:20: PT 33.5 H, INR (Anticoag Therapy) 3.55 H Discharge Location: Home Disposition: Home self-care Condition: Good Discharge Activity: Activity as tolerated Discharge Diet: General/regular food Referrals: Amado Nicholson DO [Primary Care Provider] - Consultation Done:: Dr. Nicholson Prescriptions (Any new or edited meds): Lisinopril [Zestril] 20 mg PO DAILY #20 tab Transmission Status: Pending to [facility] Complete Home Medications List: Complete Home Medication List: Brimonidine Tartrate [Brimonidine 0.2% Ophthalmic Solution] 1 drp EACHEYE BID 10/13/16 Amiodarone HCl [Cordarone] 100 mg PO DAILY 02/11/17 warfarin 5 mg tablet 2.5 mg PO DAILY 10/09/17 Omeprazole [Prilosec] 20 mg PO DAILY 10/21/17 acetaminophen 325 mg tablet 650 mg PO Q6H tab 05/03/18 atorvastatin 20 mg tablet 10 mg PO HS tab 05/03/18 Ergocalciferol (Vitamin D2) [Vitamin D2] 50,000 unit PO Q7D 07/08/18 Levothyroxine Sodium [Synthroid] 50 mcg PO DAILY 07/26/18 lisinopril 20 mg-hydrochlorothiazide 12.5 mg tablet 1 tab PO DAILY #90 tab 12/20/18 tamsulosin 0.4 mg capsule 0.4 mg PO DAILY #90 cap 04/19/19 Lisinopril [Zestril] 20 mg PO DAILY #20 tab 06/08/19 Polyethylene Glycol 3350 [Miralax] 17 gm PO DAILY packet 06/08/19
[2019-06-08 14:47] VITALS: BP 147/72
== END 2019-06-08 14:50 | disposition home or self-care (01) ==
LOC: ER 19:04 → MS 19:04
PROVIDERS: ADMIT Surgery; ATTEND Surgery
DX: E78.5 Hyperlipidemia, unspecified; I48.91 Unspecified atrial fibrillation; Z79.01 Long term (current) use of anticoagulants; I10 Essential (primary) hypertension; H40.9 Unspecified glaucoma; Z79.899 Other long term (current) drug therapy; R33.9 Retention of urine, unspecified; E03.9 Hypothyroidism, unspecified; K56.50 Intestinal adhesions [bands], unspecified as to partial versus complete obstruction; K21.9 Gastro-esophageal reflux disease without esophagitis
CPT/HCPCS: 36415; 71010; 71045; 74019; 74020; 74177; 80053; 82150; 83690; 85025; 85610; 86140; 93005; 96365; 96375; 99285; G0378; J2405; Q9963; Q9967